=== PATIENT | male | born 1955 | race Caucasian/White ===

== ENCOUNTER 2023-08-09 14:20 | Emergency (ER) | payer MEDICARE ==
[2023-08-09 15:10] LABS: HEMATOCRIT 48.9 % (42.0-52.0); HEMOGLOBIN 16.7 g/dL (14.0-18.0); MEAN CORPUSCULAR HEMOGLOBIN 29.3 pg (28.0-32.0); MEAN CORPUSCULAR HGB CONC 34.2 g/dL (32.0-36.0); MEAN CORPUSCULAR VOLUME 85.8 fL (83.0-99.0); MEAN PLATELET VOLUME 10.9 fL (9.4-12.4); PLATELET COUNT,PLT 221 K/uL (150-400); WHITE BLOOD CELL COUNT,WBC 20.61 K/uL (3.9-11.3)
[2023-08-09 15:40] LABS: BASOPHILS ABSOLUTE MAN 0.21 K/uL (0.00-0.20); BASOPHILS PERCENT MAN 1 % (0-1); EOSINOPHILS PERCENT MAN 0 % (0-6); LYMPHOCYTES ABSOLUTE MAN 11.34 K/uL (1.00-4.80); LYMPHOCYTES PERCENT MAN 55 % (24-44); MONOCYTES ABSOLUTE MAN 1.24 K/uL (0.00-0.80); MONOCYTES PERCENT MAN 6 % (0-8); SEG NEUTROPHILS ABSOLUTE MAN 7.83 K/uL (1.80-7.70); SEG NEUTROPHILS PERCENT MAN 38 % (41-71)
[2023-08-09 15:45] LABS: BILIRUBIN TOTAL 0.3 mg/dL (0.2-1.0); CALCIUM 9.5 mg/dL (8.5-10.1); CARBON DIOXIDE,CO2 26.4 mmol/L (21.0-32.0); CREATININE 1.3 mg/dL (0.8-1.3); EST CRCL DRUG DOSING (CG) 58.86 mL/min; POTASSIUM,K 4.4 mmol/L (3.5-5.1); PROTEIN TOTAL,TP 7.9 g/dL (6.4-8.2); TSH ULTRASENSITIVE 4.35 uIU/mL (0.36-3.74)
[2023-08-09 16:29] LABS: T3 FREE 3.22 pg/mL (2.18-3.98); T4 FREE 0.91 ng/dL (0.76-1.46)
[2023-08-09 16:50] LABS: APPEARANCE,URINE CLEAR; BILIRUBIN,URINE NEGATIVE (NEGATIVE); COLOR,URINE YELLOW; GLUCOSE,URINE NEGATIVE (NEGATIVE); KETONES,URINE NEGATIVE (NEGATIVE); LEUKOCYTE ESTERASE,URINE NEGATIVE (NEGATIVE); NITRITE,URINE NEGATIVE (NEGATIVE); OCCULT BLOOD,URINE SMALL (NEGATIVE); PROTEIN,URINE NEGATIVE (NEGATIVE); UROBILINOGEN,URINE 0.2 EU/dL (<2.0)
[2023-08-09 16:59] LABS: RBC,URINE 0-2 (0-2/HPF)
[2023-08-09 17:00] LABS: BACTERIA,URINE RARE (NEGATIVE); EPITHELIAL CELLS,URINE NOT SEEN (NONE-FEW); WBC,URINE NONE SEEN (0-5/HPF)
== END 2023-08-09 17:14 | disposition home or self-care (01) ==
LOC: MW.ED 14:20
DX: D72.829 Elevated white blood cell count, unspecified (principal); E03.9 Hypothyroidism, unspecified; Z75.8 Other problems related to medical facilities and other health care
CPT/HCPCS: 36415; 71045; 71045-26; 80053; 81001; 84439; 84443; 84481; 85025; 93010; 99283; 99284